=== PATIENT | female | born 1985 | race Caucasian/White ===

== ENCOUNTER 2019-05-11 07:37 | Day surgery (SDC) | payer OTHER ==
[~2019-05-11 07:37] MED LIST: TOPROL XL100 M1 PO
== END 2019-05-11 14:25 | disposition home or self-care (01) ==
LOC: CIR.AMB 07:37
DX: N80.2 Endometriosis of fallopian tube (principal); N73.6 Female pelvic peritoneal adhesions (postinfective)

== ENCOUNTER 2019-05-11 15:08 | Emergency (ER) | payer OTHER ==
[~2019-05-11] VITALS: Ht 152.4 cm; Wt 52.2 kg
== END 2019-05-11 16:52 | disposition home or self-care (01) ==
LOC: ER 15:08
DX: R07.89 Other chest pain (principal)

== ENCOUNTER 2021-03-17 05:55 | Day surgery (SDC) | payer OTHER ==
[~2021-03-17 05:55] MED LIST changes: +LOSARTAN-HCTZ1 EACH PO
== END 2021-03-17 14:15 | disposition home or self-care (01) ==
LOC: CIR.AMB 05:55
PROVIDERS: ATTEND Plastic Surgery
DX: N64.82 Hypoplasia of breast (principal); Z20.822 Contact with and (suspected) exposure to COVID-19